=== PATIENT | female | born 1965 | race Caucasian/White ===

== ENCOUNTER 2023-02-05 20:56 | Emergency (ER) | payer MEDICARE, BC ==
[~2023-02-05] VITALS: Ht 175.3 cm; Wt 63.5 kg
[2023-02-05] MEDS ORDERED: ONDANSETRON HCL 4 MG TABLET PO ONE (21:45)
[2023-02-05] MEDS ORDERED: HYDROMORPHONE 1 MG/1 ML DISP.SYRIN IM ONE (21:45)
[2023-02-05] MEDS ORDERED: ONDANSETRON HCL 4 MG TABLET ONE (22:19)
[2023-02-05] MEDS ORDERED: HYDROMORPHONE 2 MG/1 ML DISP.SYRIN ONE (22:19)
[2023-02-05] MEDS ORDERED: HYDR-3980 PO (22:27)
[2023-02-05] MEDS ORDERED: diphenhydrAMINE 50 MG/1 ML VIAL ONE (22:41)
[2023-02-05 22:59] VITALS: BP 115/78
--- NOTE | 2023-02-05 23:00 | NUR ---
1) Daughter picked patient up - clinically stable. 2) Paper prescrition given to patient for pain meds 3) Discharge paperwork completed and copies provided to patient.
== END 2023-02-05 23:00 | disposition home or self-care (01) ==
LOC: ER 20:56
DX: S90.32XA Contusion of left foot, initial encounter (principal); G43.909 Migraine, unspecified, not intractable, without status migrainosus; Z90.49 Acquired absence of other specified parts of digestive tract; Z88.8 Allergy status to other drugs, medicaments and biological substances; Z79.899 Other long term (current) drug therapy; W20.8XXA Other cause of strike by thrown, projected or falling object, initial encounter; Y93.89 Activity, other specified; Y92.89 Other specified places as the place of occurrence of the external cause; Y99.8 Other external cause status
CPT/HCPCS: 99283; 73630; 96372; J1200; J1170; A4663; Q0162

== ENCOUNTER 2024-06-03 19:50 | Emergency (ER) | payer MEDICARE, OTHER ==
[~2024-06-03] VITALS: Ht 175.3 cm; Wt 68.0 kg
[~2024-06-03 19:50] MED LIST: HYDR-3980 PO
--- NOTE | 2024-06-03 20:25 | NUR ---
ERMD at bedside. MSE in progress.
[2024-06-03] MEDS ORDERED: HYDROMORPHONE 2 MG/1 ML DISP.SYRIN ONE ×2 (20:38→21:34)
[2024-06-03] MEDS ORDERED: ONDANSETRON 4 MG/2 ML VIAL ONE (20:38)
[2024-06-03] MEDS ORDERED: KETOROLAC TROMETHAMINE 15 MG INJ ONE (20:38)
[2024-06-03] MEDS ORDERED: diphenhydrAMINE 50 MG/1 ML VIAL ONE (20:39)
[2024-06-03] MEDS: diphenhydrAMINE 50 MG/1 ML VIAL IV ONE (20:42)
[2024-06-03] MEDS: KETOROLAC TROMETHAMINE 15 MG INJ IVP ONE (20:43)
[2024-06-03] MEDS: ONDANSETRON 4 MG/2 ML VIAL IV ONE (20:43)
[2024-06-03] MEDS: HYDROMORPHONE 1 MG/1 ML DISP.SYRIN IV ONE ×2 (20:43→21:39)
--- NOTE | 2024-06-03 20:45 | NUR ---
Administered medication as prescribed, Assisted patient into comfortable position. safety and comfort measures in place. No S/S of distress noted.
[2024-06-03] MEDS: IV NORMAL SALINE 1000 ML BAG IV ONE (21:21)
--- NOTE | 2024-06-03 22:08 | NUR ---
Patient discharged to home in stable condition. Written and verbal after care instructions given. Patient verbalizes understanding of instructions. Stressed follow up or return to ER for worsening s/s. Patient left ER with steady gait.
[2024-06-03 22:38] VITALS: BP 124/80; TEMP 98; O2SAT 98
== END 2024-06-03 22:38 | disposition home or self-care (01) ==
LOC: ER 20:35
DX: R51.9 Headache, unspecified (principal); M79.2 Neuralgia and neuritis, unspecified; J45.909 Unspecified asthma, uncomplicated; Z90.49 Acquired absence of other specified parts of digestive tract; Z79.899 Other long term (current) drug therapy; Z88.1 Allergy status to other antibiotic agents
CPT/HCPCS: 99284; 96374; 96375; 96361; 96376; J1200; J1885; J2405; J1170 ×2; J7040; A4606; A4663

== ENCOUNTER 2024-09-26 18:34 | Emergency (ER) | payer MEDICARE, OTHER ==
[~2024-09-26] VITALS: Ht 175.3 cm; Wt 67.1 kg
[2024-09-26] MEDS ORDERED: LEXAPRO (18:49)
[2024-09-26] MEDS ORDERED: ROSUVASTATIN (18:49)
[2024-09-26] MEDS ORDERED: PROPRANOLOL (18:49)
[2024-09-26] MEDS: KETOROLAC TROMETHAMINE 30 MG INJ IVP ONE (19:30)
[2024-09-26] MEDS: diphenhydrAMINE 50 MG/1 ML VIAL IV ONE (19:30)
[2024-09-26] MEDS: HYDROMORPHONE 1 MG/1 ML DISP.SYRIN IV ONE ×2 (19:30→20:45)
[2024-09-26] MEDS: ONDANSETRON 4 MG/2 ML VIAL IV ONE (19:30)
[2024-09-26] MEDS ORDERED: ONDANSETRON 4 MG/2 ML VIAL ONE (19:47)
[2024-09-26] MEDS ORDERED: diphenhydrAMINE 50 MG/1 ML VIAL ONE (19:47)
[2024-09-26] MEDS ORDERED: KETOROLAC TROMETHAMINE 30 MG INJ ONE (19:47)
[2024-09-26] MEDS ORDERED: HYDROMORPHONE 2 MG/1 ML DISP.SYRIN ONE ×2 (19:47→20:36)
[2024-09-26] MEDS ORDERED: CLONAZEPAM 0.5 MG TABLET ONE (20:20)
[2024-09-26] MEDS: CLONAZEPAM 0.5 MG TABLET PO ONE (20:21)
[2024-09-26 22:59] VITALS: BP 114/89; TEMP 98.5; O2SAT 98
== END 2024-09-26 21:40 | disposition home or self-care (01) ==
LOC: ER 18:34
DX: M54.81 Occipital neuralgia (principal); E78.00 Pure hypercholesterolemia, unspecified; G89.4 Chronic pain syndrome; J45.909 Unspecified asthma, uncomplicated; Z90.710 Acquired absence of both cervix and uterus; Z88.5 Allergy status to narcotic agent
CPT/HCPCS: 99284; 96374; 96375; 96376; J1200; J1885; J2405; J1171 ×2; A4606; A4663

== ENCOUNTER 2024-10-15 15:25 | Emergency (ER) | payer MEDICARE, OTHER ==
[~2024-10-15] VITALS: Ht 175.3 cm; Wt 65.8 kg
[~2024-10-15 15:25] MED LIST changes: +LEXAPRO; +PROPRANOLOL; +ROSUVASTATIN
[2024-10-15 19:13] LABS: BASOPHILS % (AUTO) 0.6 % (0.0-2.0); EOSINOPHILS # (AUTO) 0.1 K/uL (0.0-0.7); EOSINOPHILS % (AUTO) 2.6 % (0.0-7.0); HEMATOCRIT 38.6 % (31.2-41.9); HEMOGLOBIN 13.2 g/dL (10.9-14.3); LYMPHOCYTES % (AUTO) 36.4 % (20.5-51.5); MEAN CORPUSCULAR HEMOGLOBIN 32.7 uug (24.7-32.8); MEAN CORPUSCULAR HGB CONC 34 g/dL (32.3-35.6); MEAN CORPUSCULAR VOLUME 95.5 fL (75.5-95.3); MONOCYTES # (AUTO) 0.4 K/uL (0.1-1.30); MONOCYTES % (AUTO) 7.9 % (0.0-11.0); NEUTROPHILS # (AUTO) 2.9 K/uL (1.8-8.9); NEUTROPHILS % (AUTO) 52.5 % (38.5-71.5); PLATELET COUNT (AUTO) 106 K/uL (179-408); RED BLOOD CELL COUNT(AUTO) 4.04 MIL/uL (3.63-4.92); RED CELL DISTRIBUTION WIDTH 13.1 % (12.3-17.7); WHITE BLOOD COUNT (AUTO) 5.6 K/uL (3.8-11.8)
[2024-10-15 19:16] LABS: DIFFERENTIAL COMMENT 1
[2024-10-15] MEDS: KETOROLAC TROMETHAMINE 30 MG INJ IVP ONE (19:18)
[2024-10-15] MEDS: IV NORMAL SALINE 1000 ML BAG IV ONE (19:18)
[2024-10-15] MEDS: diphenhydrAMINE 50 MG/1 ML VIAL IV ONE (19:18)
[2024-10-15 19:21] LABS: CALCIUM 8.4 mg/dL (8.5-10.1); POTASSIUM 4.3 mmol/L (3.5-5.1)
[2024-10-15] MEDS ORDERED: HYDROMORPHONE 2 MG/1 ML DISP.SYRIN ONE (20:02)
[2024-10-15] MEDS: HYDROMORPHONE 1 MG/1 ML DISP.SYRIN IV ONE (20:11)
[2024-10-15 20:59] VITALS: BP 110/72; TEMP 98; O2SAT 98
== END 2024-10-15 21:03 | disposition home or self-care (01) ==
LOC: ER 15:25
DX: G43.909 Migraine, unspecified, not intractable, without status migrainosus (principal); J45.909 Unspecified asthma, uncomplicated; Z90.49 Acquired absence of other specified parts of digestive tract; Z90.710 Acquired absence of both cervix and uterus; Z98.890 Other specified postprocedural states; Z88.5 Allergy status to narcotic agent; Z88.7 Allergy status to serum and vaccine
CPT/HCPCS: 99284; 96374; 96375; 96361; 80048; 85025; 36415; J1885; J1171; J1200; J7040; A4606; A4663

== ENCOUNTER 2024-12-01 03:13 | Emergency (ER) | payer MEDICARE, OTHER ==
[~2024-12-01] VITALS: Ht 175.3 cm; Wt 65.8 kg
[2024-12-01] MEDS ORDERED: GABA300C PO (03:49)
[2024-12-01] MEDS ORDERED: ONDA4TAB5 PO (03:49)
[2024-12-01] MEDS ORDERED: ONDANSETRON 4 MG/2 ML VIAL ONE (03:56)
[2024-12-01] MEDS ORDERED: diphenhydrAMINE 50 MG/1 ML VIAL ONE (03:56)
[2024-12-01] MEDS ORDERED: HYDROMORPHONE 2 MG/1 ML DISP.SYRIN ONE (03:57)
[2024-12-01] MEDS: diphenhydrAMINE 50 MG/1 ML VIAL IV ONE (04:13)
[2024-12-01] MEDS: HYDROMORPHONE 1 MG/1 ML DISP.SYRIN IV ONE (04:13)
[2024-12-01] MEDS: IV NS 1000 ML 1,000 ML IV ONE (04:13)
[2024-12-01] MEDS: ONDANSETRON 4 MG/2 ML VIAL IV ONE (04:14)
[2024-12-01 04:31] LABS: BASOPHILS % (AUTO) 0.4 % (0.0-2.0); EOSINOPHILS % (AUTO) 0.8 % (0.0-7.0); HEMOGLOBIN 10.8 g/dL (10.9-14.3); LYMPHOCYTES # (AUTO) 1.4 K/uL (0.8-4.8); LYMPHOCYTES % (AUTO) 29.6 % (20.5-51.5); MEAN CORPUSCULAR HEMOGLOBIN 32.3 uug (24.7-32.8); MEAN CORPUSCULAR HGB CONC 34 g/dL (32.3-35.6); MEAN CORPUSCULAR VOLUME 95.5 fL (75.5-95.3); MONOCYTES # (AUTO) 0.4 K/uL (0.1-1.30); MONOCYTES % (AUTO) 7.4 % (0.0-11.0); NEUTROPHILS # (AUTO) 2.9 K/uL (1.8-8.9); NEUTROPHILS % (AUTO) 61.8 % (38.5-71.5); PLATELET COUNT (AUTO) 89 K/uL (179-408); RED BLOOD CELL COUNT(AUTO) 3.35 MIL/uL (3.63-4.92); RED CELL DISTRIBUTION WIDTH 13.8 % (12.3-17.7); WHITE BLOOD COUNT (AUTO) 4.7 K/uL (3.8-11.8)
[2024-12-01 04:46] LABS: DIFFERENTIAL COMMENT 1
[2024-12-01 04:51] LABS: CALCIUM 8.6 mg/dL (8.5-10.1); CREATININE 0.8 mg/dL (0.6-1.3); POTASSIUM 4.4 mmol/L (3.5-5.1)
[2024-12-01 04:57] LABS: ALBUMIN 3.4 g/dL (3.4-5.0); BILIRUBIN,TOTAL 0.3 mg/dL (0.2-1.0); TOTAL PROTEIN, SERUM 6.6 g/dL (6.4-8.2)
[2024-12-01 05:46] VITALS: BP 135/79; O2SAT 97
[2024-12-01 13:29] LABS: LYMPHOCYTES % (MANUAL) 0 % (20-40); NEUTROPHILS % (MANUAL) 0 % (42-75)
== END 2024-12-01 05:59 | disposition home or self-care (01) ==
LOC: ER 03:13
DX: G43.909 Migraine, unspecified, not intractable, without status migrainosus (principal); G89.4 Chronic pain syndrome; J45.909 Unspecified asthma, uncomplicated; Z79.899 Other long term (current) drug therapy; Z90.49 Acquired absence of other specified parts of digestive tract; Z90.710 Acquired absence of both cervix and uterus; Z98.890 Other specified postprocedural states; Z88.5 Allergy status to narcotic agent; Z88.7 Allergy status to serum and vaccine
CPT/HCPCS: 99284; 96374; 96361; 96375; 80053; 85025; 36415; 85007; J1171; J1200; J2405; J7040; A4606; A4663

== ENCOUNTER 2025-02-23 10:46 | Emergency (ER) | payer MEDICARE, OTHER ==
[~2025-02-23] VITALS: Ht 175.3 cm; Wt 65.8 kg
[~2025-02-23 10:46] MED LIST changes: +GABA300C PO; +ONDA4TAB5 PO
[2025-02-23] MEDS ORDERED: KETOROLAC TROMETHAMINE 15 MG INJ ONE (11:36)
[2025-02-23] MEDS ORDERED: diphenhydrAMINE 50 MG/1 ML VIAL ONE (11:36)
[2025-02-23] MEDS ORDERED: HYDROMORPHONE 2 MG/1 ML DISP.SYRIN ONE (11:37)
[2025-02-23] MEDS ORDERED: FAMOTIDINE. 20 MG/2 ML VIAL IV ONE (11:37)
[2025-02-23 11:38] LABS: BASOPHILS % (AUTO) 0.8 % (0.0-2.0); DIFFERENTIAL COMMENT 1; EOSINOPHILS # (AUTO) 0.2 K/uL (0.0-0.7); EOSINOPHILS % (AUTO) 5.1 % (0.0-7.0); HEMOGLOBIN 13.6 g/dL (10.9-14.3); LYMPHOCYTES # (AUTO) 1.8 K/uL (0.8-4.8); LYMPHOCYTES % (AUTO) 37.3 % (20.5-51.5); MEAN CORPUSCULAR HEMOGLOBIN 31.7 uug (24.7-32.8); MEAN CORPUSCULAR HGB CONC 33 g/dL (32.3-35.6); MEAN CORPUSCULAR VOLUME 95.8 fL (75.5-95.3); MONOCYTES # (AUTO) 0.3 K/uL (0.1-1.30); MONOCYTES % (AUTO) 6.8 % (0.0-11.0); NEUTROPHILS # (AUTO) 2.3 K/uL (1.8-8.9); PLATELET COUNT (AUTO) 100 K/uL (179-408); RED BLOOD CELL COUNT(AUTO) 4.28 MIL/uL (3.63-4.92); RED CELL DISTRIBUTION WIDTH 13.4 % (12.3-17.7); WHITE BLOOD COUNT (AUTO) 4.7 K/uL (3.8-11.8)
[2025-02-23] MEDS: diphenhydrAMINE 50 MG/1 ML VIAL IV ONE (11:45)
[2025-02-23] MEDS: IV NORMAL SALINE 1000 ML BAG IV ONE (11:46)
[2025-02-23] MEDS: FAMOTIDINE. 20 MG/2 ML VIAL IV ONE (11:46)
[2025-02-23] MEDS: HYDROMORPHONE 1 MG/1 ML DISP.SYRIN IV ONE (11:46)
[2025-02-23] MEDS: KETOROLAC TROMETHAMINE 15 MG INJ IVP ONE (11:47)
[2025-02-23 11:52] LABS: ALANINE AMINOTRANSFERASE 27 U/L (14-59); ALBUMIN 3.5 g/dL (3.4-5.0); ALKALINE PHOSPHATASE 84 U/L (50-136); ASPARTATE AMINOTRANSFERASE 19 U/L (15-37); BILIRUBIN,DIRECT 0.1 mg/dL (0.0-0.2); BILIRUBIN,TOTAL 0.3 mg/dL (0.2-1.0); CALCIUM 9.1 mg/dL (8.5-10.1); CARBON DIOXIDE 30 mmol/L (21-32); CHLORIDE 109 mmol/L (98-107); CREATININE 0.9 mg/dL (0.6-1.3); GLUCOSE 92 mg/dL (74-106); LIPASE 29 U/L (16-77); POTASSIUM 4.5 mmol/L (3.5-5.1); SODIUM SERUM 146 mmol/L (136-145); TOTAL PROTEIN, SERUM 6.7 g/dL (6.4-8.2); UREA NITROGEN, BLOOD 13 mg/dL (7-18)
[2025-02-23] MEDS ORDERED: LIDOCAINE VISCUS 2% 15 ML UDC ONE (13:29)
[2025-02-23] MEDS ORDERED: MAG HYDROX/AL HYDROX/SIMETH 30 ML LIQUID UDC ONE (13:29)
[2025-02-23] MEDS: MAG HYDROX/AL HYDROX/SIMETH 30 ML LIQUID UDC PO ONE (13:32)
[2025-02-23] MEDS: LIDOCAINE VISCUS 2% 15 ML UDC PO ONE (13:32)
[2025-02-23 13:41] VITALS: BP 122/79; O2SAT 98
== END 2025-02-23 13:43 | disposition home or self-care (01) ==
LOC: ER 10:48
DX: G43.909 Migraine, unspecified, not intractable, without status migrainosus (principal); E78.5 Hyperlipidemia, unspecified; G89.4 Chronic pain syndrome; I10 Essential (primary) hypertension; J45.909 Unspecified asthma, uncomplicated; K21.9 Gastro-esophageal reflux disease without esophagitis; Z79.899 Other long term (current) drug therapy; Z90.49 Acquired absence of other specified parts of digestive tract; Z90.710 Acquired absence of both cervix and uterus; Z98.890 Other specified postprocedural states; Z88.5 Allergy status to narcotic agent; Z88.7 Allergy status to serum and vaccine
CPT/HCPCS: 99284; 96374; 96375; 96361; 80076; 80048; 83690; 85025; 84484; 36415; 93005; J1885; J1200; J1308; J1171; J7040; A4606; A4663

== ENCOUNTER 2025-04-14 22:25 | Emergency (ER) | payer MEDICARE, OTHER ==
[~2025-04-14] VITALS: Ht 175.3 cm; Wt 65.8 kg
[2025-04-14] MEDS ORDERED: HYDROMORPHONE 2 MG/1 ML DISP.SYRIN ONE (23:14)
[2025-04-14] MEDS ORDERED: diphenhydrAMINE 50 MG/1 ML VIAL ONE (23:14)
[2025-04-14] MEDS ORDERED: ONDANSETRON 4 MG/2 ML VIAL ONE (23:14)
[2025-04-14] MEDS ORDERED: FAMOTIDINE. 20 MG/2 ML VIAL IV ONE (23:15)
[2025-04-14] MEDS: IV NORMAL SALINE 1000 ML BAG IV ONE (23:20)
[2025-04-14] MEDS: diphenhydrAMINE 50 MG/1 ML VIAL IV ONE (23:29)
[2025-04-14] MEDS: FAMOTIDINE. 20 MG/2 ML VIAL IV ONE (23:30)
[2025-04-14] MEDS: ONDANSETRON 4 MG/2 ML VIAL IV ONE (23:30)
[2025-04-14] MEDS: HYDROMORPHONE 1 MG/1 ML DISP.SYRIN IV ONE (23:30)
[2025-04-15 00:21] VITALS: BP 116/78; TEMP 98; O2SAT 97
== END 2025-04-15 00:23 | disposition home or self-care (01) ==
LOC: ER 22:25
DX: G43.909 Migraine, unspecified, not intractable, without status migrainosus (principal); J45.909 Unspecified asthma, uncomplicated; K44.9 Diaphragmatic hernia without obstruction or gangrene; R10.13 Epigastric pain; Z79.899 Other long term (current) drug therapy; Z88.5 Allergy status to narcotic agent; Z88.7 Allergy status to serum and vaccine; Z90.49 Acquired absence of other specified parts of digestive tract; Z90.710 Acquired absence of both cervix and uterus; Z98.1 Arthrodesis status; Z98.890 Other specified postprocedural states
CPT/HCPCS: 99284; 96374; 96375; 96361; 93005; J1200; J1308; J2405; J1171; J7040; A4606; A4663

== ENCOUNTER 2025-05-31 16:05 | Emergency (ER) | payer MEDICARE, MEDICAID ==
[~2025-05-31] VITALS: Ht 175.3 cm; Wt 65.8 kg
[2025-05-31 16:15] VITALS: BP_SYST 11
[2025-05-31] MEDS: IV NORMAL SALINE 1000 ML BAG IV ONE (17:16)
[2025-05-31] MEDS ORDERED: diphenhydrAMINE 50 MG/1 ML VIAL ONE (17:20)
[2025-05-31] MEDS ORDERED: HYDROMORPHONE 1 MG/1 ML DISP.SYRIN ONE (17:20)
[2025-05-31] MEDS ORDERED: FAMOTIDINE. 20 MG/2 ML VIAL IV ONE (17:20)
[2025-05-31] MEDS: HYDROMORPHONE 1 MG/1 ML DISP.SYRIN IV ONE (17:21)
[2025-05-31] MEDS: diphenhydrAMINE 50 MG/1 ML VIAL IV ONE (17:21)
[2025-05-31] MEDS: FAMOTIDINE. 20 MG/2 ML VIAL IV ONE (17:21)
[2025-05-31 19:17] VITALS: BP 112/74; TEMP 98; O2SAT 98
== END 2025-05-31 19:19 | disposition home or self-care (01) ==
LOC: ER 16:05
DX: G43.909 Migraine, unspecified, not intractable, without status migrainosus (principal); R11.0 Nausea; G89.4 Chronic pain syndrome; J45.909 Unspecified asthma, uncomplicated; Z79.899 Other long term (current) drug therapy; Z88.5 Allergy status to narcotic agent; Z88.7 Allergy status to serum and vaccine; Z90.49 Acquired absence of other specified parts of digestive tract; Z90.710 Acquired absence of both cervix and uterus; Z98.1 Arthrodesis status; Z98.890 Other specified postprocedural states; Z87.19 Personal history of other diseases of the digestive system
CPT/HCPCS: 99284; 96374; 96375; 96361; J1200; J1308; J1171; J7040; A4606; A4663

== ENCOUNTER 2025-08-27 20:34 | Inpatient (IN) | payer MEDICARE, OTHER ==
[~2025-08-27] VITALS: Ht 175.3 cm; Wt 73.5 kg
[2025-08-27] MEDS ORDERED: KETOROLAC TROMETHAMINE 30 MG INJ ONE (20:57)
[2025-08-27] MEDS ORDERED: ONDANSETRON 4 MG/2 ML VIAL ONE (20:58)
[2025-08-27] MEDS ORDERED: HYDROMORPHONE 1 MG/1 ML DISP.SYRIN ONE ×2 (20:58→23:26)
[2025-08-27] MEDS ORDERED: HYDROMORPHONE 1 MG/1 ML DISP.SYRIN IV ONE (21:00)
[2025-08-27] MEDS ORDERED: TDAP DIPH,PERTUSS,TET VAC/PF 0.5 ML DISP.SYRIN IM ONE (21:00)
[2025-08-27 21:02] LABS: PLATELET COUNT (AUTO) 121 K/uL (179-408); RED BLOOD CELL COUNT(AUTO) 4.68 MIL/uL (3.63-4.92); RED CELL DISTRIBUTION WIDTH 14.6 % (12.3-17.7); WHITE BLOOD COUNT (AUTO) 6.9 K/uL (3.8-11.8)
[2025-08-27] MEDS: KETOROLAC TROMETHAMINE 30 MG INJ IVP ONE (21:03)
[2025-08-27] MEDS: ONDANSETRON 4 MG/2 ML VIAL IV ONE (21:03)
[2025-08-27 21:10] LABS: CREATININE 0.9 mg/dL (0.6-1.3); SODIUM SERUM 143.0 mmol/L (136-145); UREA NITROGEN, BLOOD 13.0 mg/dL (7-18)
[2025-08-27] MEDS ORDERED: PROPOFOL 200 MG/20 ML BOTTLE ONE (21:44)
[2025-08-27 22:00] VITALS: O2SAT 97
[2025-08-27] MEDS: PROPOFOL 200 MG/20 ML BOTTLE IV ONE (22:27)
[2025-08-27] MEDS: HYDROMORPHONE 1 MG/1 ML DISP.SYRIN IV ONE (23:30)
[2025-08-28] MEDS ORDERED: HYDROMORPHONE 1 MG/1 ML DISP.SYRIN ONE (00:21)
[2025-08-28 01:13] VITALS: BP 126/80
[2025-08-28] MEDS ORDERED: ACETAMINOPHEN 325 MG TABLET PO PRN (01:45)
[2025-08-28] MEDS ORDERED: METHOCARBAMOL 500 MG TABLET PO PRN (01:45)
[2025-08-28] MEDS ORDERED: MAGNESIUM HYDROXIDE 30 ML LIQUID UDC PO PRN (01:45)
[2025-08-28] MEDS: HYDROMORPHONE 1 MG/1 ML DISP.SYRIN IV PRN ×2 (02:52→11:30)
[2025-08-28 03:15] VITALS: BP 136/91; TEMP 98.2; O2SAT 97
[2025-08-28] MEDS: ONDANSETRON 4 MG/2 ML VIAL IV PRN ×2 (03:15→11:32)
[2025-08-28] MEDS: PANTOPRAZOLE SODIUM 40 MG TABLET.DR PO SCH (06:51)
[2025-08-28 10:36] VITALS: BP 133/78; TEMP 97.8; O2SAT 97
[2025-08-28] MEDS ORDERED: HYDROMORPHONE 1 MG/1 ML DISP.SYRIN IV PRN (10:45)
[2025-08-28] MEDS: diphenhydrAMINE 50 MG/1 ML VIAL IV PRN (11:30)
[2025-08-28] MEDS ORDERED: NITR100C11 PO (11:35)
[2025-08-28] MEDS ORDERED: BUPR300S SQ (11:37)
[2025-08-28] MEDS ORDERED: CLON0.5T4 PO (11:38)
[2025-08-28] MEDS ORDERED: METH-807 PO (11:38)
[2025-08-28] MEDS ORDERED: BUTA-247 PO (11:39)
[2025-08-28] MEDS ORDERED: ESCI-9 PO (11:39)
[2025-08-28] MEDS ORDERED: RABE20TA33 PO (11:40)
[2025-08-28] MEDS ORDERED: PREG50CA65 PO (11:40)
[2025-08-28] MEDS ORDERED: ROSU5TAB51 PO (11:40)
[2025-08-28] MEDS ORDERED: PROP10TA68 PO (11:41)
[2025-08-28] MEDS ORDERED: ALEN70TA80 PO (11:41)
[2025-08-28] MEDS ORDERED: RAME8TAB24 PO (11:42)
[2025-08-28] MEDS: IV NS 1000 ML 1,000 ML IV PRN (14:16)
[2025-08-28 15:46] VITALS: BP 124/69; TEMP 98.6; O2SAT 96
[2025-08-28] MEDS ORDERED: HYDR-3972 PO (17:24)
== END 2025-08-28 17:10 | disposition home or self-care (01) | DRG 563 ==
LOC: ER 20:45 → MEDSURG3 08-28 01:20
PROVIDERS: ADMIT Nurse Practitioner Family; ATTEND Nurse Practitioner Acute Care
PROC: 0QSKXZZ Reposition Left Fibula, External Approach (ICD-10-PCS; principal; 2025-08-28)
DX: S82.62XA Displaced fracture of lateral malleolus of left fibula, initial encounter for closed fracture (principal); E83.42 Hypomagnesemia; J45.909 Unspecified asthma, uncomplicated; E86.0 Dehydration; M79.674 Pain in right toe(s); G89.4 Chronic pain syndrome; W10.9XXA Fall (on) (from) unspecified stairs and steps, initial encounter; Y92.89 Other specified places as the place of occurrence of the external cause; Z98.1 Arthrodesis status; Z90.710 Acquired absence of both cervix and uterus; Z88.5 Allergy status to narcotic agent; Z90.49 Acquired absence of other specified parts of digestive tract; Z79.899 Other long term (current) drug therapy
CPT/HCPCS: 36415; 73610; 73660; 83735; 85025; 90715; A4663; G0378; J1171; J1200; J1885; J2405; J3490; J7040